=== PATIENT | female | born 1970 | race Caucasian/White ===

== ENCOUNTER → 2017-04-21 11:15 | Outpatient (CLI) | payer OTHER, SELFPAY ==
[2017-04-28 07:18] LABS: HPV HC, High Risk Positive (Negative)
[2017-04-28 07:25] LABS: HPV Reflexed? YES, CHARGE PATIENT
== END ==
PROVIDERS: Visit Provider Obstetrics & Gynecology
DX: R87.612 Low grade squamous intraepithelial lesion on cytologic smear of cervix (LGSIL) (principal)
CPT/HCPCS: 87624; 88175; G0145

== ENCOUNTER → 2017-05-17 14:52 | Outpatient (CLI) | payer OTHER, SELFPAY ==
--- NOTE | 2017-05-17 14:56 | HPBI_ITS ---
MAMMOGRAPHY - BILATERAL SCREENING REASON FOR EXAM: Female, 46 years old. Routine annual screening examination. PERTINENT HISTORY: Aunt with breast cancer. TECHNIQUE: Digital bilateral breast ember (3D mammographic acquisition) in the CC and MLO projections. 2-D mediolateral oblique (MLO) and craniocaudad (CC) views of both breasts were obtained. CAD: Full Field Digital Mammography with Computer Added Detection was performed. COMPARISON: Comparison is made with prior examination dated September 14, 2007. FINDINGS: Breast Composition: The breasts are heterogeneously dense, which may obscure small masses. There are no dominant masses or suspicious calcifications. No other significant abnormalities are identified. There has been no significant change since the prior study. HPBI/SCREENING MAMM (CAD), BILAT IMPRESSION: Stable bilateral screening mammogram. Yearly follow-up mammogram recommended. (A) ASSESSMENT CATEGORY: BIRADS Category 1: Negative. A letter regarding these results will be sent to the patient by the facility within 30 days. Approximately 10% of breast cancers are not detected by mammography. A normal mammogram should not delay biopsy of a clinically suspicious abnormality. [id number] Electronically Signed: John Moreira MD at 8:06 EST Tel [phone], Service support ,
== END ==
PROVIDERS: Visit Provider Obstetrics & Gynecology
DX: Z12.31 Encounter for screening mammogram for malignant neoplasm of breast (principal)
CPT/HCPCS: 77063; 77067

== ENCOUNTER → 2018-01-08 10:44 | Outpatient (CLI) | payer OTHER, SELFPAY ==
[2018-01-08 12:53] LABS: Hemoglobin A1c 5.4 % (4.2-6.3)
[2018-01-08 14:47] LABS: Estradiol 127.8 pg/mL; Follicle Stimulating Hormone 17.2 mIU/mL; Free T3 2.9 pg/mL (2.18-3.98); T4 Free Direct 1.03 ng/dL (0.76-1.46); Thyroid Stim Hormone (TSH) 0.96 uIU/mL (0.358-3.74)
[2018-01-09 14:49] LABS: DHEA Sulfate 115.7 ug/dL (41.2-243.7)
== END ==
PROVIDERS: Visit Provider Obstetrics & Gynecology
DX: N94.3 Premenstrual tension syndrome (principal)
CPT/HCPCS: 36415; 82533; 82627; 82670; 83001; 83036; 84144; 84403; 84439; 84443; 84481; 82626

== ENCOUNTER → 2018-02-21 18:19 | Outpatient (CLI) | payer OTHER, SELFPAY | PROVIDERS: Referring Provider Obstetrics & Gynecology; Visit Provider Obstetrics & Gynecology | DX: N39.0 Urinary tract infection, site not specified (principal) | CPT/HCPCS: 87086; 87088; 87186 ==

== ENCOUNTER 2018-05-17 15:18 | Emergency (ER) | payer OTHER, SELFPAY ==
[2018-05-17 15:19] VITALS: BP 153/93; PULSE 106; RESP 16; TEMP 36.6; O2SAT 97; BMI 30.4
--- NOTE | 2018-05-17 15:39 | CT_ITS ---
STUDY: CT ABDOMEN AND PELVIS WITH CONTRAST REASON FOR EXAM: Female, 47 years old. Left abdominal pain possible diverticulitis RADIATION DOSAGE (If Supplied By Facility): CTDIvol = ( 18.28 ) mGy, DLP = ( 1081.83 ) mGycm TECHNIQUE: Transaxial images were obtained from the dome of the diaphragm to the symphysis pubis without oral contrast. Isovue 300 100mL IV was administered. Sagittal and coronal images were reconstructed. Individualized dose optimization techniques were used for this CT. COMPARISON: CT 09/27/2012. FINDINGS: The visualized lung bases are unremarkable. The visualized portions of the heart are within normal limits. Normal liver. Normal gallbladder and extrahepatic biliary system. Normal spleen. Normal pancreas. Normal bilateral adrenal glands. There is a 4 mm hypodensity mid pole right kidney not present on prior CT. Normal left kidney. Normal visualized stomach. Normal small intestine. There are multiple colonic diverticula most significant within sigmoid colon. There is stranding within the mesenteric fat adjacent to the distal descending colon and proximal sigmoid colon. There is no CT evidence for abscess. There is no free intraperitoneal air. The appendix is visualized and appears normal. Normal abdominal aorta. Normal inferior vena cava. Normal retroperitoneum. There is mild distention within the bladder. Normal abdominal wall. There are stable significant degenerative changes at L5-S1. CT/Abdomen/Pelvis W IV Cont ONLY IMPRESSION: Distal descending colon and proximal sigmoid colon acute diverticulitis Stable multilevel spondylosis lumbar spine most significant at L5-S1 Mild distended bladder New 4 mm hypodensity mid pole right kidney which is too small to characterize most likely a renal cyst however pathologic renal lesion cannot be excluded. This could be further evaluated with MRI. Electronically Signed: Kenton Isaac, at 17:39 EST Tel , Service support ,
--- NOTE | 2018-05-17 15:40 | ED.VISSUMM ---
- ER Visit Summary Date of Service: 05/17/18 Chief Complaint: Left-sided abdominal pain History of Present Illness: The patient is a 47 F history of prior diverticulitis. States that she is abdominal pain gradual onset since yesterday. No nausea, vomiting or diarrhea. No melena. No fever. Mild constipation. No dysuria. She denies any back pain. States it is similar to her prior diverticulitis episode. That was years ago. She has had prior partial hysterectomy but no other abdominal surgeries. She denies any recent weight loss. Physical Examination: Middle-aged female no acute distress. Vital signs are stable. She is afebrile. She does not look septic or toxic. She is in no distress. HEENT exam unremarkable. Neck nontender no lymphadenopathy. Lungs clear to auscultation bilaterally. Heart regular rhythm no murmur rate about 100. Abdomen soft. Nondistended. Normal bowel sounds. She does have left-sided abdominal tenderness. In the midportion. No hernias or masses. No signs of obstruction. No peritoneal signs. Right upper right lower quadrant unremarkable. Patient moving all 4 extremities. Neurovascular intact. Back nontender. Neurologically she is awake alert with no focal motor deficits. Test Results: CBC shows slightly elevated white count 12.4. Normal hemoglobin 14. No bands. Chemistries unremarkable. Total bilirubin 1.1. CT abdomen pelvis with IV contrast shows descending and sigmoid diverticulitis. A 4 mm right mid pole of the right kidney undetermined lesion which may need further evaluation. I discussed all test results with the patient. And including possible follow-up for the right renal abnormality. Emergency Department Course and Treatment: Patient's history and exam are consistent with possible diverticulitis. She has had this before. She will obtain screening labs and a CT of her abdomen pelvis with IV contrast. Currently at this time she does not want any medications. Repeat exam she is doing well at 1734 and 1746. Treated with p.o. Cipro and Flagyl here and prescriptions for both her home. Treatment Plan: Cipro 500 twice daily for 10 days. Flagyl 500 3 times daily for 10 days. Follow-up with her PCP to ensure she is improving or return if worse. Disposition: Discharge Impression: Acute abdominal pain secondary to acute descending colon and sigmoid diverticulitis Incidental finding of right renal midpole abnormality on CT which will need further workup This note was generated with eRely[employer] software. It may contain incorrect words, spelling, and punctuation that were not noted in review of the chart prior to signing ED Disposition - Plan for ED Patient: Disposition: Home or Assisted Living Instructions: ED Diverticulitis Referrals: Francisco Orantes [Primary Care Provider] - 1 Week if not improving Additional Instructions: Cipro 1 pill twice a day. Flagyl 1 pill 3 times a day. Both for 10 days. Finish both prescriptions. Tylenol and Motrin for pain. Plenty of fluids and rest. If not improving follow-up with your primary care physician. If you are feeling worse return to ER for further evaluation.
[2018-05-17 15:44] VITALS: BP 153/93; PULSE 106; RESP 17; TEMP 36.6; O2SAT 97
--- NOTE | 2018-05-17 15:44 | ED.DCSUM_ITS ---
- ER Visit Summary Date of Service: 05/17/18 Chief Complaint: Left-sided abdominal pain History of Present Illness: The patient is a 47 F history of prior diverticulitis. States that she is abdominal pain gradual onset since yesterday. No nausea, vomiting or diarrhea. No melena. No fever. Mild constipation. No dysuria. She denies any back pain. States it is similar to her prior diverticulitis episode. That was years ago. She has had prior partial hysterectomy but no other abdominal surgeries. She denies any recent weight loss. Physical Examination: Middle-aged female no acute distress. Vital signs are stable. She is afebrile. She does not look septic or toxic. She is in no distress. HEENT exam unremarkable. Neck nontender no lymphadenopathy. Lungs clear to auscultation bilaterally. Heart regular rhythm no murmur rate about 100. Abdomen soft. Nondistended. Normal bowel sounds. She does have left- sided abdominal tenderness. In the midportion. No hernias or masses. No signs of obstruction. No peritoneal signs. Right upper right lower quadrant un remarkable. Patient moving all 4 extremities. Neurovascular intact. Back nontender. Neurologically she is awake alert with no focal motor deficits. Test Results: CBC shows slightly elevated white count 12.4. Normal hemoglobin 14. No bands. Chemistries unremarkable. Total bilirubin 1.1. CT abdomen pelvis with IV contrast shows descending and sigmoid diverticulitis. A 4 mm right mid pole of the right kidney undetermined lesion which may need further evaluation. I discussed all test results with the patient. And including possible follow-up for the right renal abnormality. Emergency Department Course and Treatment: Patient's history and exam are consistent with possible diverticulitis. She has had this before. She will obtain screening labs and a CT of her abdomen pelvis with IV contrast. Currently at this time she does not want any medications. Repeat exam she is doing well at 1734 and 1746. Treated with p.o. Cipro and Flagyl here and prescriptions for both her home. Treatment Plan: Cipro 500 twice daily for 10 days. Flagyl 500 3 times daily for 10 days. Follow-up with her PCP to ensure she is improving or return if worse. Disposition: Discharge Impression: Acute abdominal pain secondary to acute descending colon and sigmoid diverticulitis Incidental finding of right renal midpole abnormality on CT which will need further workup This note was generated with [email or web address] software. It may contain incorrect words, spelling, and punctuation that were not noted in review of the chart prior to signing ED Disposition - Plan for ED Patient: Disposition: Home or Assisted Living Instructions: ED Diverticulitis Referrals: Francisco Orantes [Primary Care Provider] - 1 Week if not improving Additional Instructions: Cipro 1 pill twice a day. Flagyl 1 pill 3 times a day. Both for 10 days. Finish both prescriptions. Tylenol and Motrin for pain. Plenty of fluids and rest. If not improving follow-up with your primary care physician. If you are feeling worse return to ER for further evaluation.
--- NOTE | 2018-05-17 15:44 | ED.DEP ---
ED Disposition - Plan for ED Patient: Disposition: Home or Assisted Living Instructions: ED Diverticulitis Prescriptions: Metronidazole [Flagyl] 500 mg PO Q8H 10 Days #30 tab Ciprofloxacin [Cipro] 500 mg PO BID #20 tab Referrals: Francisco Orantes [Primary Care Provider] - 1 Week if not improving Additional Instructions: Cipro 1 pill twice a day. Flagyl 1 pill 3 times a day. Both for 10 days. Finish both prescriptions. Tylenol and Motrin for pain. Plenty of fluids and rest. If not improving follow-up with your primary care physician. If you are feeling worse return to ER for further evaluation.
[2018-05-17 15:54] LABS: AST(SGOT) 12 U/L (15-37); Alanine Aminotransfer ALT/SGPT 22 U/L (13-56); Albumin, Serum 4.1 g/dL (3.2-5.0); Alkaline Phosphatase 82 U/L (45-117); Anion Gap 10 (5-15); BUN 16 mg/dL (7-18); Calcium,Total 9.1 mg/dL (8.5-10.1); Chloride 102 mmol/L (98-107); Creatinine, Serum 0.76 mg/dL (0.55-1.02); EST Glomerular Filtration Rate 86 mL/min (>60); Est Glom Filt Rate - Afr Amer 104 mL/min (>60); Estimated Creatinine Clearance 79.02 ml/min; Globulin 4.2 g/dL (2.2-4.2); Glucose 96 mg/dL (74-106); Potassium 3.8 mmol/L (3.5-5.1); Protein, Total 8.3 g/dL (6.4-8.2); Sodium Level 140 mmol/L (136-145)
[2018-05-17 16:33] VITALS: BP 157/91; PULSE 96; RESP 17; TEMP 37.2; O2SAT 98
[2018-05-17 16:35] VITALS: BP 153/93; PULSE 106; TEMP 36.6; O2SAT 97
[2018-05-17 16:51] LABS: Absolute Lymphocyte Count 1.64 X10^3/ul (0.83-4.51); Absolute Neutrophil Count 9.9 X10^3/uL (2.0-7.7); Basophil# 0.03 X10^3/uL; Basophil% 0.2 % (0-1); Eosinophil# 0.01 X10^3/uL; Eosinophils% 0.1 % (0-5); Hematocrit 43.4 % (37-47); Hemoglobin 14.4 g/dl (12.0-15.0); Lymphocyte # 1.64 X10^3/ul (4.0); Lymphocyte % 13.2 % (19-41); Mean Corp Hgb Conc 33.2 g/gl (32-36); Mean Corpuscular Hgb 29.6 pg (27.0-32.0); Mean Corpuscular Volume 89.1 fL (81-99); Mean Platelet Vol. 11.7 fl (6.2-12.0); Monocyte# 0.86 X10^3/uL; Monocyte% 6.9 % (0-10); Neutrophil # 9.88 X10^3/uL (2.7-7.7); Neutrophil % 79.4 % (47-70); Platelet Count 256 K/mm3 (150-450); RBC Distribution Width CV 12.7 % (11.6-14.6); RBC Distribution Width SD 40.9 fl (35.1-43.9); Red Blood Count 4.87 M/mm3 (4.2-5.4); White Blood Count 12.4 K/mm3 (4.4-11.0)
[2018-05-17 16:54] LABS: POSITIVE COUNT NO; POSITIVE DIFFERENTIAL NO; POSITIVE MORPHOLOGY NO
--- NOTE | 2018-05-17 17:48 | ED.DEP ---
ED Disposition - Plan for ED Patient: Disposition: Home or Assisted Living Instructions: ED Diverticulitis Referrals: Francisco Orantes [Primary Care Provider] - 1 Week if not improving Additional Instructions: Cipro 1 pill twice a day. Flagyl 1 pill 3 times a day. Both for 10 days. Finish both prescriptions. Tylenol and Motrin for pain. Plenty of fluids and rest. If not improving follow-up with your primary care physician. If you are feeling worse return to ER for further evaluation. There was also an incidental finding on your right kidney in the midportion it may be an early renal cyst but it was too small to tell at this time. It may need further imaging.
[2018-05-17] MEDS: metroNIDAZOLE 500 MG Tablet PO (18:16)
[2018-05-17] MEDS: Ciprofloxacin 500 MG Tablet PO (18:16)
[2018-05-17 18:19] VITALS: BP 147/82; PULSE 103; RESP 17; O2SAT 98
== END 2018-05-17 18:19 | disposition home or self-care (01) ==
PROVIDERS: Emergency Provider Emergency Medicine; Family Provider Family Medicine
DX: K57.32 Diverticulitis of large intestine without perforation or abscess without bleeding (principal); R93.421 Abnormal radiologic findings on diagnostic imaging of right kidney; F98.8 Other specified behavioral and emotional disorders with onset usually occurring in childhood and adolescence
CPT/HCPCS: 74177; 80053; 85025; 99285; Q9967; A4216

== ENCOUNTER → 2018-06-21 06:47 | Outpatient (CLI) | payer OTHER, SELFPAY ==
--- NOTE | 2018-06-21 06:51 | MRI_ITS ---
STUDY: MRI OF THE KIDNEYS WITH AND WITHOUT CONTRAST REASON FOR EXAM: Female, 47 years old. History of small left renal lesion. Possible cyst. TECHNIQUE: Standardized fat and water weighted pulse sequences were obtained in all 3 orthogonal planes post contrast administration. 15 IV Dotarem was administered for the contrast portion of the examination. COMPARISON: Correlation is made with the previous CT scan of the abdomen and pelvis of 05/17/2018. FINDINGS: The examination is somewhat limited due to motion artifacts. The liver is not entirely included on this examination. There may be small few millimeter cyst in the posterior segment of the right lobe. Normal gallbladder and extrahepatic biliary system. Normal spleen. Normal pancreas. Normal bilateral adrenal glands. There is a small hypointense nonenhancing lesion in the mid upper pole of the right kidney measuring about 6 mm which demonstrates no significant enhancement following intravenous injection of contrast. It is most consistent with small cyst. There is no evidence of hydronephrosis. Normal left kidney. Normal visualized stomach. The small bowel loops as visualized on this exam are normal in caliber. Normal abdominal aorta. Normal inferior vena cava. Normal retroperitoneum. Normal abdominal wall. MRI/MRI Abd WITH and W/O Contrast IMPRESSION: 1. Findings consistent with small simple cyst in the mid upper pole of the right kidney. 2. Probable small cyst in the right lobe of the liver. 3. Follow-up abdominal ultrasound in 6 months is recommended. Electronically Signed: Carlos Manuel Mills MD at 8:39 EDT Tel , Service support ,
== END ==
PROVIDERS: Family Provider Family Medicine; Referring Provider Family Medicine; Visit Provider Family Medicine
DX: N28.1 Cyst of kidney, acquired (principal)
CPT/HCPCS: 74183; A9575

== ENCOUNTER → 2022-09-21 | Outpatient (CLI) | payer OTHER, SELFPAY ==
--- NOTE | 2022-09-21 16:11 | BI_ITS ---
MAMMOGRAPHY - BILATERAL SCREENING REASON FOR EXAM: Female, 52 years old. Routine annual screening examination. PERTINENT HISTORY: Aunt with breast cancer. TECHNIQUE: Digital bilateral breast brittany (3D mammographic acquisition) in the CC and MLO projections. 2-D mediolateral oblique (MLO) and craniocaudad (CC) views of both breasts were obtained. CAD: Full Field Digital Mammography with Computer Added Detection was performed. COMPARISON: Comparison is made with prior study dated May 09, 2017. FINDINGS: Breast Composition: The breasts are heterogeneously dense, which may obscure small masses. There are no dominant masses or suspicious calcifications. No other significant abnormalities are identified. There has been no significant change since the prior study. BI/SCRN MAMM (CAD)W/BRITTANY BILAT IMPRESSION: Stable bilateral screening mammogram. Yearly follow-up mammogram recommended. (A) ASSESSMENT CATEGORY: BIRADS Category 1: Negative. A letter regarding these results will be sent to the patient by the facility within 30 days. Approximately 10% of breast cancers are not detected by mammography. A normal mammogram should not delay biopsy of a clinically suspicious abnormality. [id number] Electronically Signed: John Moreira MD at 8:31 EDT ,
== END | disposition home or self-care (01) ==
PROVIDERS: PCP Family Medicine; Referring Provider Nurse Practitioner Women's Health; Visit Provider Nurse Practitioner Women's Health
DX: Z12.31 Encounter for screening mammogram for malignant neoplasm of breast (principal)
CPT/HCPCS: 77063; 77067

== ENCOUNTER → 2024-05-07 | Outpatient (CLI) | payer OTHER, SELFPAY ==
[2024-05-11 10:08] LABS: HPV APTIMA, High Risk Negative (Negative)
== END | disposition home or self-care (01) ==
LOC: LABSPEC 16:26
PROVIDERS: PCP Family Medicine; Referring Provider Nurse Practitioner Family; Visit Provider Nurse Practitioner Family
DX: Z12.4 Encounter for screening for malignant neoplasm of cervix (principal)
CPT/HCPCS: 87624; 88175; G0145